=== PATIENT | female | born 1940 | race Caucasian/White ===

== ENCOUNTER 2022-11-06 09:11 | Emergency (ER) | payer OTHER ==
--- OUTSIDE RECORDS SUMMARY | 2022-11-06 09:17 | XMS REPORT | Continuity of Care Document ---
:1940 Author Organization [facility] t Address [address] [place] [address] Care Team Providers Name Role Phone Abhi DEVINE, Magnolia Welch Primary Care Physician [phone] Theresa Martínez Attending Clinician Unavailable Roxane Vigil Attending Clinician Unavailable ERLIZABETHON_Jaimie Attending Clinician Unavailable ERLUKE_Jaimie Admitting Clinician Unavailable Payers Payer Name Policy Type Policy Number Effective Date Expiration Date S hal [place] [address] [id number] [facility] MEDICARE MB [id number] 2006 [facility] NOVITAS 00:00:00 - [place] [id number] [facility] MEDICARE MB [id number] 2006 [facility] NOVITAS 00:00:00 - [facility] MEDICARE MB [id number] 2006 [facility] NOVITAS 00:00:00 - [place] [id number] [facility] MEDICARE MB [id number] 2006 [facility] NOVITAS 00:00:00 - [facility] MEDICARE MB [id number] 2006 [facility] NOVITAS 00:00:00 - [facility] Blue Cross Blue C1 [id number] 2020 [facility] Shield of [place] 00:00:00 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 High blood High blood Problem C ommon pressure pressure [facility] [id number] Pain of Problem Comm on left hand [facility] [id number] History of Problem Co mmon bladder Spirit cancer [facility] High High Problem Common cholestero cholestero Sp chris l l 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 [id number] Pain in Problem Comm on [id number] right hand Spiri t 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 without without - CHI complicati complicati [facility] on [facility] Intraocula Presence Problem Com mon r lens of Spirit implant intraocula - CHI r lens [facility] Allergies, Adverse Reactions, Alerts Allergy Allergy Status Severity Reaction(s) Onset Inactive Treating Comm ents Source Name Type Date Date Clinician Rosuvast Propensi Active Method i atin ty to 08-18 adverse 00:00: Hospita reaction 00 l s to drug Cefadrox Propensi Active Method i il ty to 08-18 adverse 00:00: Hospita reaction 00 l s to drug Erythrom Propensi Active Method i ycin ty to 08-18 adverse 00:00: Hospita reaction 00 l s to drug Atorvast Propensi Active Method i atin ty to 08-18 st adverse 00:00: Hospita reaction 00 l s to drug erythrom erythrom Active rash Common ycin ycin [facility] [id number] Drug Active vomiting Common allergy [facility] atorvast atorvast [facility]alg[facility] Family History Family Member Diagnosis Comments Start Date Stop Date Source Natural mother Uterine cancer Method [facility] Natural mother Osteoarthritis Method [facility] Natural sister Breast cancer [facility] Natural sister Lung cancer [facility] Natural father Heart attack [facility] Natural father Heart disease [facility] Natural father Hypertension [facility] Social History Social Habit Start Date Stop Date Quantity Comments Source History of Tobacco Common [facility] - Use [facility] Gender identity [facility] Sexual orientation Method [facility] History of Social 2018-11-26 2018-11-[address] function 00:00:00 00:00:00 Hospital Tobacco use and 2018-08-18 2018-08-18 Sm[facility]eless [facility] exposure 00:00:00 00:00:00 tobacco non-user Hospital Alcohol intake 2018-08-18 2018-08-18 Current [facility] 00:00:00 00:00:00 non-drinker of Hospital alcohol (finding) Sex Ass[birth year] At [birth year] [facility] 00:00:00 00:00:00 Hospital Smoking Status Start Date Stop Date Source Former Smoker 2022-03-11 00:00:00 2022-03-11 00:00:[address] [facility] Medications Ordered Filled Start Stop Current Ordering Indication Dosage Frequency Signature Comments Components Source Medication Medication Date Date Medication? Clinician (SIG) Name Name UNABLE TO Yes Berberine Met hodi FIND 08-[address] 11:47: 500mg po Hospita 26 bid l cetirizine Yes 10mg QD Take 10 mg M ethodi (ZyrTEC) 10 08-[address] MG tablet 11:38: daily. Hospit a 03 l losartan Yes 50mg QD Take 50 mg Met hodi (COZAAR) 50 5-[address] MG tablet 11:38: daily. Hospit a 03 l verapamil 2019-0 Yes 240mg QD Take 240 Met hodi extended 5-[address] release 11:38: mouth Hospita (VERELAN) 03 daily. l 240 MG 24 hr capsule acetaminoph Yes 650mg Q8H Take 650 M ethodi en (TYLENOL 5-[address] ARTHRITIS 11:38: mouth Hospita PAIN) 650 03 every 8 l MG 8 hr (eight) tablet hours as needed for mild pain. cyanocobala 2018- Yes 1000ug QD Take 1,000 Methodi min 5-[address] (VITAMIN 11:38: mouth Hospita B-12) 1000 03 daily. l MCG tablet BIOTIN ORAL 0 Yes 5000mg QD Take 5,000 Methodi 5-[address] 11:38: mouth Hospita 03 daily. l aspirin Yes 81mg QD Take 81 mg Meth yessy (ECOTRIN) 5-[address] 81 MG 11:38: daily. Hospita enteric 03 l coated tablet cholecalcif Yes 1000U QD Take 1,000 Methodi shayne, 5-[address] vitamin D3, 11:38: mouth Hospi ta (VITAMIN 03 daily. l D3) 1,000 unit capsule flaxseed Yes Take by Method i oil 1,000 5-[address] mg capsule 11:38: Hospita 03 l magnesium 2019- Yes 250mg QD Take 250 Met hodi oxide 250 5-[address] mg 11:38: mouth Hospita magnesium 03 daily. l tablet L. 20190 Yes Take by Methodi acidophilus 5-[address] /Bifido 11:38: Hospita longum 03 l (PROBIOTIC PEARLS ORAL) desonide 2018-0 Yes Apply Methodi (DESOWEN) 5-[address] 0.05 % 11:38: as needed Hospit a cream 03 for l irritation . Senna Lax Senna Lax Yes Roxane 2 tablets Common Millender at bedtime Spir it as needed - [facility] Vitamin D-3 Vitamin D-3 Yes Roxane 1 capsule Common Millender [facility] - [facility] Desonide Desonide Yes Roxane 1 Common Millender applicatio Spir it n to - CHI affected [facility] Berberine Berberine Yes Roxane as Comm on Complex Complex Millender directed [facility] Aspirin Low Aspirin Low Yes Roxane 1 tablet Common Dose Dose Millender [facility] Biotin 5000 Biotin 5000 Yes Roxane 1 capsule Common Millender [facility] FreeStyle FreeStyle Yes Roxane as Comm on Lancets Lancets [facility] Vitamin B12 Vitamin B12 Yes Roxane 1 tablet Common Millender [facility] Flaxseed Flaxseed Yes Roxane as Common Oil Max Str Oil Max Str Millender directed [facility] FreeStyle FreeStyle Yes Roxane as Comm on [place] [facility] Ibuprofen Ibuprofen Yes Roxane 1 tablet Common Millender with food Spiri t or milk as - CHI needed [facility] Melatonin Melatonin Yes Roxane as Comm on Millender directed [facility] Co Q 10 Co Q 10 Yes Roxane 1-3 Common Millender capsule Spirit with a - CHI meal [facility] Magnesium Magnesium Yes Roxane 1 tablet Common Millender with a Spirit meal [facility] Zyrtec Zyrtec Yes Roxane 1 tablet Common Allergy Allergy Millender Spir it - [facility] Probiotic Probiotic Yes Roxane as Comm on Millender directed [facility] Losartan Losartan Yes Roxane 1 tablet Co mmon Potassium Potassium [facility] FreeStyle FreeStyle No FreeStyle [place] - Vitamin D-3 Vitamin D-3 No 1{capsu QD Vitamin 1000 UNIT 1000 UNIT le} D-3 1000 UNIT ZyrTEC ZyrTEC No 1{table QD ZyrTEC Allergy 10 Allergy 10 t} Allergy 10 MG MG MG Losartan Losartan No 1{table QD Losartan Potassium Potassium t} Potassium 50 MG 50 MG 50 MG Flaxseed Flaxseed No Flaxseed Oil Max Str Oil Max Str Oil Max 1300 MG 1300 MG Str 1300 MG Magnesium Magnesium No 1{table QD Magnesium 250 MG 250 MG t_with_ 250 MG a_meal} FreeStyle FreeStyle No FreeStyle Lancets - Lancets - Lancets - Berberine Berberine No Berberine Complex Complex Complex 200-200-50 200-200-50 200-200-50 MG MG MG Vitamin B12 Vitamin B12 No 1{table QD Vitamin 1000 MCG 1000 MCG t} B12 1000 MCG FreeStyle FreeStyle No FreeStyle [place] - Losartan Losartan No 1{table QD Losartan Potassium Potassium t} Potassium 50 MG 50 MG 50 MG Vitamin B12 Vitamin B12 No 1{table QD Vitamin 1000 MCG 1000 MCG t} B12 1000 MCG ZyrTEC ZyrTEC No 1{table QD ZyrTEC Allergy 10 Allergy 10 t} Allergy 10 MG MG MG Vitamin D-3 Vitamin D-3 No 1{capsu QD Vitamin 1000 UNIT 1000 UNIT le} D-3 1000 UNIT Magnesium Magnesium No 1{table QD Magnesium 250 MG 250 MG t_with_ 250 MG a_meal} FreeStyle FreeStyle No FreeStyle Lancets - Lancets - Lancets - Berberine Berberine No Berberine Complex Complex Complex 200-200-50 200-200-50 200-200-50 MG MG MG Flaxseed Flaxseed No Flaxseed Oil Max Str Oil Max Str Oil Max 1300 MG 1300 MG Str 1300 MG Vitamin B12 Vitamin B12 No 1{table QD Vitamin 1000 MCG 1000 MCG t} B12 1000 MCG FreeStyle FreeStyle No FreeStyle Lancets - Lancets - Lancets - FreeStyle FreeStyle No FreeStyle [place] - Vitamin D-3 Vitamin D-3 No 1{capsu QD Vitamin 1000 UNIT 1000 UNIT le} D-3 1000 UNIT ZyrTEC ZyrTEC No 1{table QD ZyrTEC Allergy 10 Allergy 10 t} Allergy 10 MG MG MG Flaxseed Flaxseed No Flaxseed Oil Max Str Oil Max Str Oil Max 1300 MG 1300 MG Str 1300 MG Berberine Berberine No Berberine Complex Complex Complex 200-200-50 200-200-50 200-200-50 MG MG MG Losartan Losartan No 1{table QD Losartan Potassium Potassium t} Potassium 50 MG 50 MG 50 MG Magnesium Magnesium No 1{table QD Magnesium 250 MG 250 MG t_with_ 250 MG a_meal} Losartan Losartan No 1{table QD Losartan Potassium Potassium t} Potassium 50 MG 50 MG 50 MG FreeStyle FreeStyle No FreeStyle Lancets - Lancets - Lancets - FreeStyle FreeStyle No FreeStyle [place] - Vitamin D-3 Vitamin D-3 No 1{capsu QD Vitamin 1000 UNIT 1000 UNIT le} D-3 1000 UNIT ZyrTEC ZyrTEC No 1{table QD ZyrTEC Allergy 10 Allergy 10 t} Allergy 10 MG MG MG Vitamin B12 Vitamin B12 No 1{table QD Vitamin 1000 MCG 1000 MCG t} B12 1000 MCG Berberine Berberine No Berberine Complex Complex Complex 200-200-50 200-200-50 200-200-50 MG MG MG Flaxseed Flaxseed No Flaxseed Oil Max Str Oil Max Str Oil Max 1300 MG 1300 MG Str 1300 MG Magnesium Magnesium No 1{table QD Magnesium 250 MG 250 MG t_with_ 250 MG a_meal} FreeStyle FreeStyle No FreeStyle [place] - Berberine Berberine No Berberine Complex Complex Complex 200-200-50 200-200-50 200-200-50 MG MG MG Vitamin D-3 Vitamin D-3 No 1{capsu QD Vitamin 1000 UNIT 1000 UNIT le} D-3 1000 UNIT Losartan Losartan No 1{table QD Losartan Potassium Potassium t} Potassium 50 MG 50 MG 50 MG Vitamin B12 Vitamin B12 No 1{table QD Vitamin 1000 MCG 1000 MCG t} B12 1000 MCG FreeStyle FreeStyle No FreeStyle Lancets - Lancets - Lancets - Magnesium Magnesium No 1{table QD Magnesium 250 MG 250 MG t_with_ 250 MG a_meal} ZyrTEC ZyrTEC No 1{table QD ZyrTEC Allergy 10 Allergy 10 t} Allergy 10 MG MG MG Flaxseed Flaxseed No Flaxseed Oil Max Str Oil Max Str Oil Max 1300 MG 1300 MG Str 1300 MG FreeStyle FreeStyle No FreeStyle [place] - Berberine Berberine No Berberine Complex Complex Complex 200-200-50 200-200-50 200-200-50 MG MG MG Vitamin D-3 Vitamin D-3 No 1{capsu QD Vitamin 1000 UNIT 1000 UNIT le} D-3 1000 UNIT Losartan Losartan No 1{table QD Losartan Potassium Potassium t} Potassium 50 MG 50 MG 50 MG Vitamin B12 Vitamin B12 No 1{table QD Vitamin 1000 MCG 1000 MCG t} B12 1000 MCG FreeStyle FreeStyle No FreeStyle Lancets - Lancets - Lancets - Magnesium Magnesium No 1{table QD Magnesium 250 MG 250 MG t_with_ 250 MG a_meal} ZyrTEC ZyrTEC No 1{table QD ZyrTEC Allergy 10 Allergy 10 t} Allergy 10 MG MG MG Flaxseed Flaxseed No Flaxseed Oil Max Str Oil Max Str Oil Max 1300 MG 1300 MG Str 1300 MG ZyrTEC ZyrTEC No 1{table QD ZyrTEC Allergy 10 Allergy 10 t} Allergy 10 MG MG MG Losartan Losartan No 1{table QD Losartan Potassium Potassium t} Potassium 50 MG 50 MG 50 MG Magnesium Magnesium No 1{table QD Magnesium 250 MG 250 MG t_with_ 250 MG a_meal} Berberine Berberine No Berberine Complex Complex Complex 200-200-50 200-200-50 200-200-50 MG MG MG Vitamin B12 Vitamin B12 No 1{table QD Vitamin 1000 MCG 1000 MCG t} B12 1000 MCG FreeStyle FreeStyle No FreeStyle [place] - Vitamin D-3 Vitamin D-3 No 1{capsu QD Vitamin 1000 UNIT 1000 UNIT le} D-3 1000 UNIT FreeStyle FreeStyle No FreeStyle Lancets - Lancets - Lancets - Flaxseed Flaxseed No Flaxseed Oil Max Str Oil Max Str Oil Max 1300 MG 1300 MG Str 1300 MG ZyrTEC ZyrTEC No 1{table QD ZyrTEC Allergy 10 Allergy 10 t} Allergy 10 MG MG MG Losartan Losartan No 1{table QD Losartan Potassium Potassium t} Potassium 50 MG 50 MG 50 MG Magnesium Magnesium No 1{table QD Magnesium 250 MG 250 MG t_with_ 250 MG a_meal} Berberine Berberine No Berberine Complex Complex Complex 200-200-50 200-200-50 200-200-50 MG MG MG Vitamin B12 Vitamin B12 No 1{table QD Vitamin 1000 MCG 1000 MCG t} B12 1000 MCG FreeStyle FreeStyle No FreeStyle [place] - Vitamin D-3 Vitamin D-3 No 1{capsu QD Vitamin 1000 UNIT 1000 UNIT le} D-3 1000 UNIT FreeStyle FreeStyle No FreeStyle Lancets - Lancets - Lancets - Flaxseed Flaxseed No Flaxseed Oil Max Str Oil Max Str Oil Max 1300 MG 1300 MG Str 1300 MG Vitamin B12 Vitamin B12 No 1{table QD Vitamin 1000 MCG 1000 MCG t} B12 1000 MCG ZyrTEC ZyrTEC No 1{table QD ZyrTEC Allergy 10 Allergy 10 t} Allergy 10 MG MG MG Flaxseed Flaxseed No Flaxseed Oil Max Str Oil Max Str Oil Max 1300 MG 1300 MG Str 1300 MG Magnesium Magnesium No 1{table QD Magnesium 250 MG 250 MG t_with_ 250 MG a_meal} FreeStyle FreeStyle No FreeStyle Lancets - Lancets - Lancets - Losartan Losartan No 1{table QD Losartan Potassium Potassium t} Potassium 50 MG 50 MG 50 MG Berberine Berberine No Berberine Complex Complex Complex 200-200-50 200-200-50 200-200-50 MG MG MG FreeStyle FreeStyle No FreeStyle [place] - Vitamin D-3 Vitamin D-3 No 1{capsu QD Vitamin 1000 UNIT 1000 UNIT le} D-3 1000 UNIT Vitamin B12 Vitamin B12 No 1{table QD Vitamin 1000 MCG 1000 MCG t} B12 1000 MCG ZyrTEC ZyrTEC No 1{table QD ZyrTEC Allergy 10 Allergy 10 t} Allergy 10 MG MG MG Flaxseed Flaxseed No Flaxseed Oil Max Str Oil Max Str Oil Max 1300 MG 1300 MG Str 1300 MG Magnesium Magnesium No 1{table QD Magnesium 250 MG 250 MG t_with_ 250 MG a_meal} FreeStyle FreeStyle No FreeStyle Lancets - Lancets - Lancets - Losartan Losartan No 1{table QD Losartan Potassium Potassium t} Potassium 50 MG 50 MG 50 MG Berberine Berberine No Berberine Complex Complex Complex 200-200-50 200-200-50 200-200-50 MG MG MG FreeStyle FreeStyle No FreeStyle [place] - Vitamin D-3 Vitamin D-3 No 1{capsu QD Vitamin 1000 UNIT 1000 UNIT le} D-3 1000 UNIT Vitamin B12 Vitamin B12 No 1{table QD Vitamin 1000 MCG 1000 MCG t} B12 1000 MCG ZyrTEC ZyrTEC No 1{table QD ZyrTEC Allergy 10 Allergy 10 t} Allergy 10 MG MG MG Flaxseed Flaxseed No Flaxseed Oil Max Str Oil Max Str Oil Max 1300 MG 1300 MG Str 1300 MG Magnesium Magnesium No 1{table QD Magnesium 250 MG 250 MG t_with_ 250 MG a_meal} FreeStyle FreeStyle No FreeStyle Lancets - Lancets - Lancets - Losartan Losartan No 1{table QD Losartan Potassium Potassium t} Potassium 50 MG 50 MG 50 MG Berberine Berberine No Berberine Complex Complex Complex 200-200-50 200-200-50 200-200-50 MG MG MG FreeStyle FreeStyle No FreeStyle [place] - Vitamin D-3 Vitamin D-3 No 1{capsu QD Vitamin 1000 UNIT 1000 UNIT le} D-3 1000 UNIT Vitamin B12 Vitamin B12 No 1{table QD Vitamin 1000 MCG 1000 MCG t} B12 1000 MCG ZyrTEC ZyrTEC No 1{table QD ZyrTEC Allergy 10 Allergy 10 t} Allergy 10 MG MG MG Flaxseed Flaxseed No Flaxseed Oil Max Str Oil Max Str Oil Max 1300 MG 1300 MG Str 1300 MG Magnesium Magnesium No 1{table QD Magnesium 250 MG 250 MG t_with_ 250 MG a_meal} FreeStyle FreeStyle No FreeStyle Lancets - Lancets - Lancets - FreeStyle FreeStyle No FreeStyle [place] - Berberine Berberine No Berberine Complex Complex Complex 200-200-50 200-200-50 200-200-50 MG MG MG Losartan Losartan No 1{table QD Losartan Potassium Potassium t} Potassium 50 MG 50 MG 50 MG Vitamin D-3 Vitamin D-3 No 1{capsu QD Vitamin 1000 UNIT 1000 UNIT le} D-3 1000 UNIT Vitamin B12 Vitamin B12 No 1{table QD Vitamin 1000 MCG 1000 MCG t} B12 1000 MCG ZyrTEC ZyrTEC No 1{table QD ZyrTEC Allergy 10 Allergy 10 t} Allergy 10 MG MG MG FreeStyle FreeStyle No FreeStyle [place] - Desonide Desonide No 1{appli BID Desonide 0.05 % 0.05 % cation} 0.05 % FreeStyle FreeStyle No FreeStyle Lancets - Lancets - Lancets - Losartan Losartan No 1{table QD Losartan Potassium Potassium t} Potassium 50 MG 50 MG 50 MG Vitamin D-3 Vitamin D-3 No 1{capsu QD Vitamin 1000 UNIT 1000 UNIT le} D-3 1000 UNIT Magnesium Magnesium No 1{table QD Magnesium 250 MG 250 MG t_with_ 250 MG a_meal} Berberine Berberine No Berberine Complex Complex Complex 200-200-50 200-200-50 200-200-50 MG MG MG Vitamin B12 Vitamin B12 No 1{table QD Vitamin 1000 MCG 1000 MCG t} B12 1000 MCG ZyrTEC ZyrTEC No 1{table QD ZyrTEC Allergy 10 Allergy 10 t} Allergy 10 MG MG MG Berberine Berberine No Berberine Complex Complex Complex 200-200-50 200-200-50 200-200-50 MG MG MG FreeStyle FreeStyle No FreeStyle [place] - FreeStyle FreeStyle No FreeStyle Lancets - Lancets - Lancets - Magnesium Magnesium No 1{table QD Magnesium 250 MG 250 MG t_with_ 250 MG a_meal} Vitamin D-3 Vitamin D-3 No 1{capsu QD Vitamin 1000 UNIT 1000 UNIT le} D-3 1000 UNIT Desonide Desonide No 1{appli BID Desonide 0.05 % 0.05 % cation} 0.05 % Losartan Losartan No 1{table QD Losartan Potassium Potassium t} Potassium 50 MG 50 MG 50 MG Berberine Berberine No Berberine Complex Complex Complex 200-200-50 200-200-50 200-200-50 MG MG MG Losartan Losartan No 1{table QD Losartan Potassium Potassium t} Potassium 50 MG 50 MG 50 MG ZyrTEC ZyrTEC No 1{table QD ZyrTEC Allergy 10 Allergy 10 t} Allergy 10 MG MG MG FreeStyle FreeStyle No FreeStyle Lancets - Lancets - Lancets - FreeStyle FreeStyle No FreeStyle [place] - Vitamin D-3 Vitamin D-3 No 1{capsu QD Vitamin 1000 UNIT 1000 UNIT le} D-3 1000 UNIT Vitamin B12 Vitamin B12 No 1{table QD Vitamin 1000 MCG 1000 MCG t} B12 1000 MCG Flaxseed Flaxseed No Flaxseed Oil Max Str Oil Max Str Oil Max 1300 MG 1300 MG Str 1300 MG Magnesium Magnesium No 1{table QD Magnesium 250 MG 250 MG t_with_ 250 MG a_meal} Berberine Berberine No Berberine Complex Complex Complex 200-200-50 200-200-50 200-200-50 MG MG MG Losartan Losartan No 1{table QD Losartan Potassium Potassium t} Potassium 50 MG 50 MG 50 MG ZyrTEC ZyrTEC No 1{table QD ZyrTEC Allergy 10 Allergy 10 t} Allergy 10 MG MG MG FreeStyle FreeStyle No FreeStyle Lancets - Lancets - Lancets - FreeStyle FreeStyle No FreeStyle [place] - Vitamin D-3 Vitamin D-3 No 1{capsu QD Vitamin 1000 UNIT 1000 UNIT le} D-3 1000 UNIT Vitamin B12 Vitamin B12 No 1{table QD Vitamin 1000 MCG 1000 MCG t} B12 1000 MCG Flaxseed Flaxseed No Flaxseed Oil Max Str Oil Max Str Oil Max 1300 MG 1300 MG Str 1300 MG Magnesium Magnesium No 1{table QD Magnesium 250 MG 250 MG t_with_ 250 MG a_meal} Losartan Losartan No 1{table QD Losartan Potassium Potassium t} Potassium 50 MG 50 MG 50 MG Berberine Berberine No Berberine Complex Complex Complex 200-200-50 200-200-50 200-200-50 MG MG MG Vitamin D-3 Vitamin D-3 No 1{capsu QD Vitamin 1000 UNIT 1000 UNIT le} D-3 1000 UNIT FreeStyle FreeStyle No FreeStyle Lancets - Lancets - Lancets - Vitamin B12 Vitamin B12 No 1{table QD Vitamin 1000 MCG 1000 MCG t} B12 1000 MCG Magnesium Magnesium No 1{table QD Magnesium 250 MG 250 MG t_with_ 250 MG a_meal} ZyrTEC ZyrTEC No 1{table QD ZyrTEC Allergy 10 Allergy 10 t} Allergy 10 MG MG MG FreeStyle FreeStyle No FreeStyle [place] - Flaxseed Flaxseed No Flaxseed Oil Max Str Oil Max Str Oil Max 1300 MG 1300 MG Str 1300 MG Immunizations Ordered Immunization Filled Immunization Date Status Commen ts Source Name Name FLUZONE HIGH DOSE FLUZONE HIGH DOSE 2022-01-08 Completed [facility] OVER 65 10:50:[facility] - [facility] FLUZONE HIGH DOSE FLUZONE HIGH DOSE 2022-01-08 Completed [facility] OVER 65 OVER 65 10:50:00 - [facility] FLUZONE HIGH DOSE FLUZONE HIGH DOSE 2021-01-19 Completed [facility] OVER 65 OVER 65 17:17:00 - [facility] FLUZONE HIGH DOSE FLUZONE HIGH DOSE 2021-01-19 Completed [facility] OVER 65 OVER 65 17:17:00 - [facility] FLUZONE HIGH DOSE FLUZONE HIGH DOSE 2021-01-19 Completed [facility] OVER 65 OVER 65 17:17:00 - [facility] FLUZONE HIGH DOSE FLUZONE HIGH DOSE 2021-01-19 Completed [facility] OVER 65 OVER 65 17:17:00 - [facility] FLUZONE HIGH DOSE FLUZONE HIGH DOSE 2021-01-19 Completed [facility] OVER 65 OVER 65 17:17:00 - [facility] FLUZONE HIGH DOSE FLUZONE HIGH DOSE 2021-01-19 Completed [facility] OVER 65 OVER 65 17:17:00 - [facility] FLUZONE HIGH DOSE FLUZONE HIGH DOSE 2021-01-19 Completed [facility] OVER 65 OVER 65 17:17:00 - [facility] FLUZONE HIGH DOSE FLUZONE HIGH DOSE 2021-01-19 Completed [facility] OVER 65 OVER 65 17:17:00 - [facility] FLUZONE HIGH DOSE FLUZONE HIGH DOSE 2021-01-19 Completed [facility] OVER 65 OVER 65 17:17:00 - [facility] FLUZONE HIGH DOSE FLUZONE HIGH DOSE 2021-01-19 Completed [facility] OVER 65 OVER 65 17:17:00 - [facility] FLUZONE HIGH DOSE FLUZONE HIGH DOSE 2021-01-19 Completed [facility] OVER 65 OVER 65 17:17:00 - [facility] FLUZONE HIGH DOSE FLUZONE HIGH DOSE 2021-01-19 Completed [facility] OVER 65 OVER 65 17:17:00 - [facility] FLUZONE HIGH DOSE FLUZONE HIGH DOSE 2021-01-19 Completed [facility] OVER 65 OVER 65 17:17:00 - [facility] FLUZONE HIGH DOSE FLUZONE HIGH DOSE 2021-01-19 Completed [facility] OVER 65 OVER 65 17:17:00 - [facility] Vital Signs Vital Name Observation Time Observation Value Comments Source height 2022-03-12 10:20:00 60.5 [in_i] [facility] weight 2022-03-12 10:20:00 128 [lb_av] [facility] temperature 2022-03-12 10:20:00 97.4 [degF] [facility] bmi 2022-03-12 10:20:00 24.58 kg/m2 [facility] oximetry 2022-03-12 10:20:00 98 % [facility] respiratory rate 2022-03-12 10:20:00 16 /min Comm on [facility] blood pressure 2022-03-12 10:20:00 146 mm[Hg] [facility] - systolic [facility] blood pressure 2022-03-12 10:20:00 80 mm[Hg] [facility] - diastolic [facility] height 2021-11-15 15:00:00 60.5 [in_i] [facility] [facility] 2021-11-15 15:00:00 132 [lb_av] [facility] temperature 2021-11-15 15:00:00 97.5 [degF] [facility] bmi 2021-11-15 15:00:00 25.35 kg/m2 Common [facility] oximetry 2021-11-15 15:00:00 94 % Common [facility] respiratory rate 2021-11-15 15:00:00 16 /min Comm on [facility] blood pressure 2021-11-15 15:00:00 126 mm[Hg] Common [facility] - systolic [facility] blood pressure 2021-11-15 15:00:00 82 mm[Hg] Common [facility] - diastolic [facility] height 2021-11-15 15:00:00 60.5 [in_i] [facility] weight 2021-11-15 15:00:00 132 [lb_av] [facility] temperature 2021-11-15 15:00:00 97.5 [degF] Common S [facility] bmi 2021-11-15 15:00:00 25.35 kg/m2 [facility] oximetry 2021-11-15 15:00:00 94 % Common S [facility] respiratory rate 2021-11-15 15:00:00 16 /min Comm on [facility] blood pressure 2021-11-15 15:00:00 155 mm[Hg] Common [facility] - systolic [facility] blood pressure 2021-11-15 15:00:00 60 mm[Hg] [facility] height 2021-07-18 15:00:00 60.5 [in_i] Common [facility] weight 2021-07-18 15:00:00 127 [lb_av] Common [facility] temperature 2021-07-18 15:00:00 97.8 [degF] [facility] bmi 2021-07-18 15:00:00 24.39 kg/m2 [facility] oximetry 2021-07-18 15:00:00 97 % [facility] respiratory rate 2021-07-18 15:00:00 16 /min Comm on [facility] blood pressure 2021-07-18 15:00:00 134 mm[Hg] Common [facility] - systolic [facility] blood pressure 2021-07-18 15:00:00 68 mm[Hg] Common [facility] - diastolic [facility] height 2021-05-31 15:40:00 60.5 [in_i] Common [facility] weight 2021-05-31 15:40:00 132 [lb_av] Common [facility] bmi 2021-05-31 15:40:00 25.35 kg/m2 Common [facility] height 2021-03-29 13:00:00 60.5 [in_i] [facility] weight 2021-03-29 13:00:00 132.8 [lb_av] Common [facility] temperature 2021-03-29 13:00:00 97.2 [degF] [facility] bmi 2021-03-29 13:00:00 25.51 kg/m2 [facility] oximetry 2021-03-29 13:00:00 97 % [facility] respiratory rate 2021-03-29 13:00:00 16 /min Comm on [facility] blood pressure 2021-03-29 13:00:00 134 mm[Hg] [facility] blood pressure 2021-03-29 13:00:00 70 mm[Hg] Common [facility] - diastolic [facility] height 2021-01-19 09:40:00 60.5 [in_i] [facility] weight 2021-01-19 09:40:00 131 [lb_av] [facility] temperature 2021-01-19 09:40:00 97.8 [degF] [facility] bmi 2021-01-19 09:40:00 25.16 kg/m2 [facility] height 2021-01-02 11:40:00 60.50 [in_i] [facility] weight 2021-01-02 11:40:00 131 [lb_av] [facility] temperature 2021-01-02 11:40:00 98.4 [degF] [facility] bmi 2021-01-02 11:40:00 25.16 kg/m2 [facility] oximetry 2021-01-02 11:40:00 98 % [facility] respiratory rate 2021-01-02 11:40:00 16 /min Comm on [facility] blood pressure 2021-01-02 11:40:00 138 mm[Hg] Common [facility] - systolic [facility] blood pressure 2021-01-02 11:40:00 64 mm[Hg] [facility] - diastolic [facility] Procedures This patient has no known procedures. Plan of Care Planned Activity Planned Date Details Comments Source Future Scheduled 2022-09-21 COVID-19 VACCINE (#1) [facility] Hospital Test 18:34:31 [code = COVID-19 VACCINE (#1)] Future Scheduled 2022-09-21 SHINGLES VACCINES ([address] [facility] Hospital Test 18:34:31 of 2) [code = SHINGLES VACCINES (1 of 2)] Future Scheduled 2022-09-21 65[facility] [facility] Test 18:34:31 VACCINE (1 - PCV) [code = 65+ PNEUMOCOCCAL VACCINE (1 - PCV)] Future Scheduled 2022-09-21 INFLUENZA VACCINE [facility] Test 18:34:31 [code = INFLUENZA VACCINE] Encounters Start End Encounter Admission Attending Care Care Encounter Source Date/Time Date/Time Type Type Clinicians Facility Department ID 2022-03-08 Outpatient [place], STLMLC [facility] [id number] Common 16:34:01 Theresa [facility] 2021-11-13 Outpatient [place], STLMLC [facility] [id number] Common 09:34:01 Theresa [facility] 2021-10-20 Outpatient [place], STLMLC ST[facility] [id number] Common 07:56:00 Theresa [id number] [facility] 2021-07-14 Outpatient [place], STLMLC ST[facility] [id number] Common 09:56:01 Theresa [id number] [facility] 2021-05-03 Outpatient [place], STLMLC ST[facility] [id number] Common 14:26:54 Theresa 65715 [facility] 2021-05-03 Outpatient [place], STLMLC STL[facility] [id number] Common 12:32:23 Theresa [id number] [facility] 2021-05-03 Outpatient Millender, STLMLC ST[facility] [id number] Common 11:27:43 Roxane [id number] [facility] 2022-04-30 2022-04-30 (TEL) [facility] [id number] Co mmon 00:00:00 00:00:00 [facility] 2022-03-12 2022-03-12 OFFICE STLMLC ST[facility] [id number] Co mmon 00:00:00 00:00:00 VISIT EST Spir it PT LEVEL 3 [facility] 2022-02-06 2022-02-06 (TEL) STLMLC STL[facility] [id number] Co mmon 00:00:00 00:00:00 [facility] 2022-02-01 2022-02-01 (TEL) STLMLC STL[facility]C [id number] Co mmon 00:00:00 00:00:00 [facility] 2021-11-15 2021-11-15 OFFICE STLMLC STLMLC [id number] Co mmon 00:00:00 00:00:00 VISIT EST Spir it PT LEVEL 3 [facility] 2021-11-15 2021-11-15 SUB ANNUAL STLMLC STLMLC [id number] Common 00:00:00 00:00:00 MCR [facility] VISIT [facility] 2021-11-08 2021-11-08 (TEL) STLMLC STLMLC [id number] Co mmon 00:00:00 00:00:00 [facility] 2021-07-18 2021-07-18 OFFICE STLMLC STLMLC [id number] Co mmon 00:00:00 00:00:00 VISIT EST Spir it PT LEVEL 3 [facility] 2021-06-30 2021-06-30 Outpatient ERICKSON_R [facility] [id number] 09:44:00 09:44:00 [id number] 2021-05-31 2021-05-31 OFFICE STLMLC STLMLC [id number] Co mmon 00:00:00 00:00:00 VISIT EST Spir it PT LEVEL 3 [facility] 2021-05-29 2021-05-29 (TEL) STLMLC STLMLC [id number] Co mmon 00:00:00 00:00:00 [facility] 2021-04-24 2021-04-24 (TEL) STLMLC STL[facility]C [id number] Co mmon 00:00:00 00:00:00 [facility] 2021-03-29 2021-03-29 OFFICE STLMLC STLMLC [id number] Co mmon 00:00:00 00:00:00 VISIT [facility] PT - CHI LEVEL 4 [facility] 2021-02-02 2021-02-02 (TEL) STLMLC STLMLC [id number] Co mmon 00:00:00 00:00:00 [facility] 2021-01-19 2021-01-19 ([place]) Nurse STLMLC STLMLC [id number] Common 00:00:00 00:00:00 Visit [facility] 2021-01-02 2021-01-02 OFFICE STLMLC STLMLC [id number] Co mmon 00:00:00 00:00:00 VISIT [facility] PT [facility] 4 [facility] 2020-12-28 2020-12-28 (TEL) STLMLC STLMLC [id number] Co mmon 00:00:00 00:00:00 [facility] 2020-12-26 2020-12-26 (TEL) STLMLC STLMLC [id number] Co mmon 00:00:00 00:00:00 [facility] 2020-11-15 2020-11-15 Outpatient STLMLC STLMLC [id number] Common 00:00:00 00:00:00 [facility] 2020-10-05 2020-10-05 Outpatient STLMLC STLMLC [id number] Common 00:00:00 00:00:00 [facility] 2020-07-05 2020-07-05 Outpatient STLMLC STLMLC [id number] Common 00:00:00 00:00:00 [facility] 2019-09-28 2019-09-28 [facility] [id number] Common 11:00:00 11:00:00 [facility] 2019-09-28 2019-09-28 [facility] [id number] Common 11:00:00 11:00:00 [facility] 2019-03-17 2019-03-17 [facility] [id number] Common 11:00:00 11:00:[address] [facility] 2018-09-23 2018-09-23 [facility] [id number] Common 10:40:00 10:40:[address] [facility] 2018-07-29 2018-07-29 [facility] [id number] Common 15:15:00 15:15:[address] [facility] 2018-03-17 2018-03-17 [facility] [id number] Common 11:30:00 11:30:[address] [facility] 2017-12-30 2017-12-30 [facility] [id number] Common 15:51:00 15:51:[address] [facility] 2017-12-19 2017-12-19 [facility] [id number] Common 07:52:00 07:52:[address] [facility] 2017-12-18 2017-12-18 [facility] [id number] Common 23:38:00 23:38:[address] [facility] 2017-12-18 2017-12-18 [facility] [id number] Common 15:00:00 15:00:[address] [facility] Results This patient has no known results.
--- NOTE | 2022-11-06 09:36 | ER ---
Nurse's Notes [facility] Name: Marlyn Villalba Age: 82 yrs Sex: Female : 1940 Arrival Date: 11/06/2022 Time: 09:11 Bed 5 Private MD: Diagnosis: Contusion of nose, initial encounter;Abrasion of left hand;Abrasion of right hand;Abrasion of unspecified part of head Presentation: 11/06 09:13 Chief complaint: EMS states: Pt had blood drawn today, was fasting, stumbled and fell aa5 walking to her car in the parking lot, fell onto hands and face. Denies LOC. 09:13 Coronavirus screen: At this time, the client does not indicate any symptoms associated aa5 with coronavirus-19. Ebola Screen: Patient denies travel to an Ebola-affected area in the 21 days before illness onset. Initial Sepsis Screen: Does the patient meet any 2 criteria? HR > 90 bpm. Does the patient have a suspected source of infection? No. Patient's initial sepsis screen is negative. Risk Assessment: Do you want to hurt yourself or someone else? Patient reports no desire to harm self or others. Onset of symptoms was November 06, 2022. 09:13 Acuity: CHECO 4 aa5 09:13 Method Of Arrival: EMS: [facility] aa5 Historical: - Allergies: 09:13 Gjmiees-ZLQ-TtN Reductase Inhibitors; aa5 09:13 "unknown ointment"; aa5 - Home Meds: 09:13 losartan oral [Active]; aa5 - PMHx: 09:13 Hypertensive disorder; Diabetes mellitus; aa5 - Family history:: not pertinent. - Hospitalizations: : No recent hospitalization is reported. Screenin:26 [facility] ED Fall Risk Assessment (Adult) History of falling in the last 3 months, aa5 including since admission Yes- single mechanical fall (1 pt) Confusion or Disorientation No (0 pts) Intoxicated or Sedated No (0 pts) Impaired Gait No (0 pts) Mobility Assist Device Used No (0 pt) Altered Elimination No (0 pt) Score/Fall Risk Level 0 - 2 = Low Risk Oriented to surroundings, Maintained a safe environment, Educated pt \\T\\ family on fall prevention, incl call for assistance when getting out of bed. Abuse screen: Denies threats or abuse. Nutritional screening: No deficits noted. Tuberculosis screening: No symptoms or risk factors identified. Assessment: 09:13 General: Appears comfortable, Behavior is calm, cooperative. Pain: Complains of pain in aa5 nose and hands Quality of pain is described as burning, throbbing, Pain began post fall today Is continuous. Neuro: Level of Consciousness is awake, alert, obeys commands, Oriented to person, place, time, situation. Cardiovascular: Patient's skin is warm and dry. Respiratory: Airway is patent Respiratory effort is even, unlabored, Respiratory pattern is regular, symmetrical. GI: No signs and/or symptoms were reported involving the gastrointestinal system. : No signs and/or symptoms were reported regarding the genitourinary system. EENT: small abrasion noted to nose, no active bleeding noted. . Derm: Skin is pink, warm \\T\\ dry. Abrasion noted to erik palms, no active bleeding noted, dry blood noted to erik hands. Musculoskeletal: Range of motion: intact in all extremities. 09:20 Reassessment: Patient is alert, oriented x 3, equal unlabored respirations, skin aa5 warm/dry/pink. Abrasions to nose and hands cleaned with Hibiclens and saline, pt tolerated well. Dressed erik hands with Neosporin and non-adherent dressing, dressed nose with steri-strips per VO. . 10:40 Reassessment: Patient is alert, oriented x 3, equal unlabored respirations, skin aa5 warm/dry/pink. mild bleeding to left nare , MD was notified. . 10:45 Reassessment: MD at bedside . aa5 Vital Signs: 09:13 BP 155 / 64; Pulse 95; Resp 18 S; Temp 97.9(TE); Pulse Ox 100% on R/A; aa5 09:30 BP 150 / 62; Pulse 80; Resp 16 S; Temp 98(TE); Pulse Ox 100% on R/A; aa5 ED Course: 09:13 Patient arrived in ED. iw 09:13 Arm band placed on. aa5 09:13 Patient has correct armband on for positive identification. Bed in low position. Call aa5 light in reach. Side rails up X2. 09:17 Carrington Coker MD is Attending Physician. rn 09:19 Christina, Jessica, RN is Primary Nurse. aa5 09:23 Triage completed. aa5 10:50 No provider procedures requiring assistance completed. Patient did not have IV access aa5 during this emergency room visit. Administered Medications: No medications were administered Medication: 10:55 VIS not applicable for this client. aa5 Outcome: 09:35 Discharge ordered by . rn 10:55 Discharged to home ambulatory, with family. aa5 10:55 Condition: stable 10:55 Discharge instructions given to patient, Instructed on discharge instructions, follow up and referral plans. medication usage, Demonstrated understanding of instructions, follow-up care, medications, Prescriptions given X 1. 10:56 Patient left the ED. aa5 Signatures: Lu Harris RN RN iw Nieto, Roman, MD MD rn Calderon, Audri, RN RN aa5 Corrections: (The following items were deleted from the chart) 09:42 09:13 BP 155 / 64; Pulse 95bpm; Resp 18bpm; Spontaneous; Pulse Ox 100% RA; aa5 aa5
--- NOTE | 2022-11-06 09:36 | EDPHYS ---
Physician Documentation [facility] Name: Marlyn Villalba Age: 82 yrs Sex: Female : 1940 Arrival Date: 11/06/2022 Time: 09:11 Bed 5 Private MD: ED Physician Carrington Coker HPI: 11/06 09:27 This 82 yrs old Female presents to ER via EMS with complaints of Fall Injury. rn 09:27 Details of fall: The patient fell from an upright position, while walking. Onset: The rn symptoms/episode began/occurred just prior to arrival. Associated injuries: The patient sustained injury to the head, abrasion, contusion. Severity of symptoms: At their worst the symptoms were very mild. The patient has not experienced similar symptoms in the past. Pt reports tripped, fell in parking lot near doctor's office, braced her fall with her hands, struck face, scraped nose, but no LOC, remembers all events, reports mild pain to nose and gums, but does not feel like she broke anything. Ambulatory at scene. . Historical: - Allergies: 09:13 Hrcmweu-NPQ-WhZ Reductase Inhibitors; aa5 09:13 "unknown ointment"; aa5 - Home Meds: 09:13 losartan oral [Active]; aa5 - PMHx: 09:13 Hypertensive disorder; Diabetes mellitus; aa5 - Family history:: not pertinent. - Hospitalizations: : No recent hospitalization is reported. ROS: 09:27 Constitutional: Negative for fever, chills, and weight loss, Eyes: Negative for injury, rn pain, redness, and discharge, ENT: + nasal abrasion, + gingival injury Neck: Negative for injury, pain, and swelling, Cardiovascular: Negative for chest pain, palpitations, and edema, Respiratory: Negative for shortness of breath, cough, wheezing, and pleuritic chest pain, Abdomen/GI: Negative for abdominal pain, nausea, vomiting, diarrhea, and constipation, MS/Extremity: + abrasion to hands Skin: + abrasions to hands and nose Exam: 09:27 Constitutional: This is a well developed, well nourished patient who is awake, alert, rn and in no acute distress. Head/Face: Normocephalic, + minor superficial abrasions to end of nose, no laceration. Eyes: Pupils equal round and reactive to light, extra-ocular motions intact. ENT: + small, superficial linear abrasions to upper/anterior gums, no active bleeding, no lacerations that require sutures. had dentures in place, now removed, no dental injury noted. Neck: NO midline cervical tenderness Chest/axilla: Normal chest wall appearance and motion. Nontender with no deformity. No lesions are appreciated. Cardiovascular: Regular rate and rhythm. No pulse deficits. Respiratory: No increased work of breathing, no retractions or nasal flaring. Abdomen/GI: Soft, non-tender Back: No spinal tenderness. Skin: Warm, dry MS/ Extremity: Pulses equal, no cyanosis. Neurovascular intact. Full, normal range of motion. Equal circumference. Neuro: Awake and alert, GCS 15, oriented to person, place, time, and situation. Cranial nerves II-XII grossly intact. Motor strength 5/5 in all extremities. Sensory grossly intact. Cerebellar exam normal. Vital Signs: 09:13 BP 155 / 64; Pulse 95; Resp 18 S; Temp 97.9(TE); Pulse Ox 100% on R/A; aa5 09:30 BP 150 / 62; Pulse 80; Resp 16 S; Temp 98(TE); Pulse Ox 100% on R/A; aa5 MDM: 09:17 Patient medically screened. rn 09:33 Differential diagnosis: abrasion, contusion, sprain, strain. Data reviewed: vital rn signs, nurses notes, and as a result, I will discharge patient. Counseling: I had a detailed discussion with the patient and/or guardian regarding: the historical points, exam findings, and any diagnostic results supporting the discharge/admit diagnosis, the need for outpatient follow up, to return to the emergency department if symptoms worsen or persist or if there are any questions or concerns that arise at home. Special discussion: I discussed with the patient/guardian in detail that at this point there is no indication for admission to the hospital. It is understood, however, that if the symptoms persist or worsen the patient needs to return immediately for re-evaluation. ED course: No lacerations that require sutures or adhesive treatment, no injuries that require emergent imaging, + gingival abrasions and no dental trauma noted. Will dc home with return precautions and local wound care. Pt in bed doing crunches and v-ups without difficulty, happy to go home and reassures me that she didn't seriously injure herself and doesn't require anything else. . 11/06 09:18 Order name: Wound Care; Complete Time: 09:24 rn Administered Medications: No medications were administered Disposition Summary: 11/06/22 09:35 Discharge Ordered Location: Home rn Problem: new rn Symptoms: have improved rn Condition: Stable rn Diagnosis - Contusion of nose, initial encounter rn - Abrasion of left hand rn - Abrasion of right hand rn - Abrasion of unspecified part of head rn Followup: rn - With: Private Physician - When: As needed - Reason: Recheck today's complaints, Re-evaluation by your physician Discharge Instructions: - Discharge Summary Sheet rn - Abrasion rn - Facial or Scalp Contusion rn Forms: - Medication Reconciliation Form rn - Thank You Letter rn - Antibiotic rn field - Prescription Opioid Use rn - Patient Portal Instructions rn Prescriptions: - Augmentin 875-125 mg Oral Tablet - take 1 tablet by ORAL route every 12 hours for 10 days; 20 tablet; Refills: 0, rn Product Selection Permitted Signatures: Carrington Coker MD MD rn Calderon, Audri, RN RN aa5
[2022-11-06 11:02] VITALS: BP 155/64; TEMP 97.9; O2SAT 100
== END 2022-11-06 10:56 | disposition home or self-care (01) ==
LOC: ER 09:11
DX: S00.31XA Abrasion of nose, initial encounter (principal); S00.81XA Abrasion of other part of head, initial encounter; S60.512A Abrasion of left hand, initial encounter; S60.511A Abrasion of right hand, initial encounter; S00.33XA Contusion of nose, initial encounter; I10 Essential (primary) hypertension; Z88.8 Allergy status to other drugs, medicaments and biological substances